=== PATIENT | female | born 1960 | race Caucasian/White ===

== ENCOUNTER 2019-08-12 18:16 | Emergency (ER) | payer OTHER ==
[~2019-08-12] VITALS: Ht 160 cm; Wt 60.8 kg
[~2019-08-12 18:16] MED LIST: LOTREL 10-20 MG1 CAP; SYNTHROID50 MCG
[2019-08-12] MEDS ORDERED: PREDNISONE2.5 MG (18:32)
[2019-08-12] MEDS ORDERED: NEURONTIN800 MG (18:33)
[2019-08-12] MEDS ORDERED: FOLIC ACID0.8 M1 (18:33)
[2019-08-12] MEDS ORDERED: PLAQUENIL (18:33)
[2019-08-12] MEDS ORDERED: RELAFEN DS1000 MG PO (18:33)
== END 2019-08-12 21:04 | disposition home or self-care (01) ==
LOC: ER 18:16
DX: J06.9 Acute upper respiratory infection, unspecified (principal); R51 Headache

== ENCOUNTER → 2019-08-22 | Outpatient (CLI) | payer OTHER ==
[~2019-08-22] MED LIST changes: +DYMISTA NASAL S23 GM NASAL; +FLONASE16 GM NASAL; +FOLIC ACID0.8 M1; +NEURONTIN800 MG; +PLAQUENIL; +PREDNISONE2.5 MG; +RELAFEN DS1000 MG PO; +SINGULAIR10 MG PO
== END | disposition home or self-care (01) ==
LOC: OFIC 805 12:00
DX: R09.81 Nasal congestion (principal); J32.8 Other chronic sinusitis; J34.3 Hypertrophy of nasal turbinates; J34.2 Deviated nasal septum; J30.89 Other allergic rhinitis

== ENCOUNTER 2019-09-17 08:46 | Outpatient (CLI) | payer OTHER ==
[~2019-09-17] VITALS: Ht 152.4 cm; Wt 63.5 kg
[2019-09-17] MEDS ORDERED: AZELASTINE137 MCG/0. NASAL (10:55)
[2019-09-17] MEDS ORDERED: FLONASE16 GM NASAL (10:56)
[2019-09-17] MEDS ORDERED: SINGULAIR10 MG PO (10:57)
== END 2019-09-17 10:37 | disposition home or self-care (01) ==
LOC: OFIC 805 08:46
PROVIDERS: ATTEND Otolaryngology
DX: R09.81 Nasal congestion (principal); J32.8 Other chronic sinusitis; J34.3 Hypertrophy of nasal turbinates; J34.2 Deviated nasal septum

== ENCOUNTER 2022-03-16 12:40 | Outpatient (CLI) | payer OTHER ==
[~2022-03-16 12:40] MED LIST changes: +AZELASTINE137 MCG/0. NASAL
== END 2022-03-16 12:47 | disposition home or self-care (01) ==
LOC: RAD 12:40
PROVIDERS: ATTEND Internal Medicine Endocrinology, Diabetes & Metabolism
DX: M51.26 Other intervertebral disc displacement, lumbar region (principal); M51.36 Other intervertebral disc degeneration, lumbar region
CPT/HCPCS: 72146; 72148

== ENCOUNTER → 2022-05-31 | Outpatient (CLI) | payer OTHER | END | disposition home or self-care (01) | LOC: NUCLEAR 07:00 | DX: C22.1 Intrahepatic bile duct carcinoma (principal) | CPT/HCPCS: 78815; A9552 ==

== ENCOUNTER 2023-06-08 08:07 | Outpatient (CLI) | payer OTHER | END 2023-06-08 08:08 | disposition home or self-care (01) | LOC: NUCLEAR 08:07 | PROVIDERS: ATTEND Internal Medicine Endocrinology, Diabetes & Metabolism | DX: C22.1 Intrahepatic bile duct carcinoma (principal); J98.4 Other disorders of lung | CPT/HCPCS: 78815; A9552 ==

== ENCOUNTER 2024-08-10 08:15 | Outpatient (CLI) | payer OTHER | END 2024-08-10 08:16 | disposition home or self-care (01) | LOC: NUCLEAR 08:15 | DX: C22.1 Intrahepatic bile duct carcinoma (principal) | CPT/HCPCS: 78815; A9552 ==